=== PATIENT | female | born 1990 | race African-American/Black ===

== ENCOUNTER 2018-04-06 20:12 | Inpatient (IN) ==
[2018-04-06] MEDS ORDERED: Sod Chloride 0.9% Inj 1,000 ML IV.SIG ONE (22:14)
[2018-04-06 23:10] LABS: Baso % (Auto) 0.3 % (0.0-2.0); Eos % (Auto) 0.1 % (0.0-4.0); Hematocrit 21.8 % (35.0-46.0); Lymph # (Auto) 0.9 th/mm3 (1.0-4.8); Lymph % (Auto) 15.8 % (9.0-44.0); Mean Corpuscular Hemoglobin 19.9 pg (27.0-34.0); Mean Corpuscular Volume 68.2 fL (80.0-100.0); Mean Platelet Volume 7.5 fL (7.0-11.0); Mono # (Auto) 0.8 th/mm3 (0.0-0.9); Mono % (Auto) 14.8 % (0.0-8.0); Neut # (Auto) 3.8 th/mm3 (1.8-7.7); Platelet Count 149 th/mm3 (150-450); Red Blood Count 3.19 mil/mm3 (4.00-5.30); Red Cell Distribution Width 20.9 % (11.6-17.2); White Blood Count 5.5 th/mm3 (4.0-11.0)
[2018-04-06 23:13] LABS: Mean Corpuscular HGB Conc 29.2 % (32.0-36.0)
[2018-04-06 23:15] LABS: Hemoglobin 6.4 gm/dL (11.6-15.3)
[2018-04-06 23:31] LABS: Alanine Aminotransferase 23 U/L (10-53); Albumin 3.3 g/dL (3.4-5.0); Anion Gap 11 meq/L (5-15); Aspartate Aminotransferase 21 U/L (15-37); Blood Urea Nitrogen 8 mg/dL (7-18); Calcium 8.3 mg/dL (8.5-10.1); Carbon Dioxide 24.3 meq/L (21.0-32.0); Chloride 103 meq/L (98-107); Glomerular Filtration Rate Greater Than 89 mL/min (>89); Glucose,Random 79 mg/dL (74-106); Lipase 78 U/L (73-393); Potassium 3.3 meq/L (3.5-5.1); Sodium 138 meq/L (136-145)
[2018-04-06 23:34] LABS: Alkaline Phosphatase 74 U/L (45-117); Total Protein 7.5 g/dL (6.4-8.2)
--- NOTE | 2018-04-06 23:38 | ED ---
HPI General Chief complaint: Medical Clearance Stated complaint: Chills Time Seen by Provider: 04/06/18 21:58 Source: patient Mode of arrival: ambulatory Limitations: no limitations History of Present Illness HPI narrative: The patient is a 27 year old female who presents to the [facility] emergency department with a history of this morning developing bilateral flank pain. She reports it is worse on the right compared to the left. She reports that yesterday she began to have urinary frequency and urgency, symptoms similar to when she has had urinary tract infections. She reports that she did start taking Pyridium. She reports having chills. She believes that she has had a fever today. She did not have a thermometer to check it. She reports having nausea without any vomiting or diarrhea. The patient's recent history is complicated by having a blood transfusion approximately a week ago in [place]. She reports that she has been anemic all of her life, however this is the first blood transfusion that she has had. She reports that she had one pack of blood and an iron infusion. She has not started taking the oral iron yet. She reports that she is visiting from [place]. She denies having any lightheaded sensation, chest pain, chest pressure, or shortness of breath, however she does report having chronic daily fatigue. She reports that she has a family history of anemia. She reports that her last menstrual cycle was March 19. She denies having any blood in her stool or black or tarry stools. She reports having abdominal pain. She reports that she is concerned that this is related to her liver. She reports that she has been drinking alcohol daily. On review of systems otherwise, the patient denies having any cough, congestion, neck pain, or neurologic symptoms. Related Data Home Medications Medication Instructions Recorded Confirmed No Known Home Medications 04/06/18 04/06/18 Allergies Allergy/AdvReac Type Severity Reaction Status Date / Time No Known Allergies Allergy Verified 04/06/18 20:19 Review of Systems ROS: all other systems reviewed are negative [facility] Family History Family History Other Family history normal Social History Social History Substance History: Active Abuse Second Hand Smoke Exposure: Yes Smoking Status: Current every day smoker Tobacco Type: Cigarettes How Often Do You Have a Drink Containing Alcohol: 4 or more times a week Recent Travel in [facility] within the Last 8 Weeks: No Recent Out of Country Travel within the Last 8 Weeks: No Substance Abuse Detail Alcohol: Substance Frequency: Daily she has recently been drinking 1 bottle of vodka. Immunization History Tetanus Immunization: <5 Years Exam Const General: cooperative, no acute distress and well developed Nutritional Appearance: well nourished Orientation: alert, awake and oriented x3 [facility] Head: normocephalic and atraumatic Nose: no nasal discharge and no epistaxis Mouth: moist mucous membranes Throat: posterior oropharynx normal and uvula midline Eyes Sclera: normal sclerae Pupils: PERRL Neck Neck: no meningeal signs, trachea midline and no JVD Resp Effort & Inspection: no use of accessory muscles Auscultation: clear to auscultation bilaterally, no crackles, no rhonchi and no wheezes Cardio Rate: regular rate Rhythm: regular rhythm Heart Sounds: no murmurs GI Inspection: non-distended Palpation: soft, no hepatosplenomegaly, no guarding, not rigid and tender in the epigastrum, in the LUQ, in the RUQ and suprapubicly; not in the LLQ, not in the RLQ, Rogers's sign negative and with no rebound tenderness Auscultation: normal bowel sounds Rectal Exam: visual inspection normal, heme negative stool, No mass and No tenderness Back/Spine/Pelvis Back: CVA tenderness (The patient has bilateral CVA tenderness worse on the right compared to the left.) Skin General: dry skin (warm) Neuro General: alert, awake, oriented x3 and other (Grossly nonfocal.) Speech: speech normal Motor: no movement abnormalities noted Extrem General: normal to inspection (No calf tenderness on palpation. 2+ pulses in all 4 extremities.), no clubbing, no cyanosis and no edema Psych Mood: congruent mood Affect: normal affect Judgment: judgment good Course Consultations Consultation #1: The patient's case including history, pertinent physical examination findings, and laboratory studies were discussed with Dr. Mckinney. It was agreed that the patient would be admitted to the hospitalist service. Initial Documented Vital Signs Temperature 100.3 F H 04/06/18 20:19 Pulse Rate 80 04/06/18 20:19 Respiratory Rate 16 04/06/18 20:19 Blood Pressure 113/58 L 04/06/18 20:19 Pulse Oximetry 98 04/06/18 20:19 Last Documented Vital Signs Temperature 100.2 F H 04/07/18 04:58 Pulse Rate 80 04/07/18 07:11 Respiratory Rate 18 04/07/18 07:11 Blood Pressure 103/61 04/07/18 07:11 Pulse Oximetry 96 04/07/18 07:11 Medical Decision Making MDM Narrative Medical decision making narrative: During the course of the patient's emergency department visit, the patient's history, examination, and differential diagnosis were reviewed with the patient. The patient was placed on a cardiac cath lab manager with oximetry and frequent blood pressure monitoring. The patient had IV access obtained and blood work sent for analysis. A diagnostic evaluation was started regarding the patient's symptoms of abdominal pain, nausea, urinary frequency and urgency. The patient's records from [facility] were obtained. The patient's hemoglobin prior to discharge was 7.5. The patient was initially provided normal saline 1 L IV fluid bolus, Zofran 4 mg IV for nausea. Diagnostic studies are remarkable for a white count of 8.9, hemoglobin 6.4, platelets 149, monocytes 14.8. As the patient's hemoglobin has dropped a point since last week, a rectal examination was done and was Hemoccult negative. Chemistry is remarkable for a potassium of 3.3, calcium 8.3, albumin 3.3, lipase within normal limits, urinalysis shows evidence of urinary tract infection with positive nitrate. The patient was given Rocephin 1 g IV. CHEST X-RAY: No infiltrate, pneumothorax or mediastinal widening. Showed no acute abnormality. The patient's case was discussed with her. Given her reported continued fatigue. The patient prefers to have a blood transfusion. The patient will be admitted for blood transfusion, continue treatment of suspected pyelonephritis. The patient's results were discussed with the patient, including the plan of care. I explained that further testing and/ or monitoring is indicated based on the patient's history, examination, and/ or laboratory findings. Therefore, I recommended admission for additional evaluation. The patient expressed understanding and was agreeable with this plan. The patient was admitted to the hospital in stable condition and sent to a bed under the care of the [facility] service. Medical Screen Exam Complete: Yes Emergency Medical Condition: Yes Differential Diagnosis Differential Diagnosis: Symptomatic anemia, versus pyelonephritis, versus cystitis, versus musculoskeletal strain, versus viral syndrome Medical Records Medical records reviewed: Yes I reviewed the patient's medical records. Lab Data Lab results reviewed: Yes I reviewed the patient's lab results. Result diagrams: 04/07/18 07:11 04/07/18 07:11 POC Results POC Urine Results Negative Lab Results 04/06/18 04/06/18 04/06/18 Range/Units 22:57 22:57 22:57 CBC w Diff Auto diff final WBC 5.5 (4.0-11.0) th/mm3 RBC 3.19 L (4.00-5.30) mil/mm3 Hgb 6.4 L* (11.6-15.3) gm/dL Hct 21.8 L (35.0-46.0) % MCV 68.2 L (80.0-100.0) fL MCH 19.9 L (27.0-34.0) pg MCHC 29.2 L (32.0-36.0) % RDW 20.9 H (11.6-17.2) % Plt Count 149 L (150-450) th/mm3 MPV 7.5 (7.0-11.0) fL Prelim Diff (Auto) Payroll Administrator Neut % (Auto) 69.0 (16.0-70.0) % Lymph % (Auto) 15.8 (9.0-44.0) % [place] % (Auto) 14.8 H (0.0-8.0) % Eos % (Auto) 0.1 (0.0-4.0) % Baso % (Auto) 0.3 (0.0-2.0) % Neut # (Auto) 3.8 (1.8-7.7) th/mm3 Lymph # (Auto) 0.9 L (1.0-4.8) th/mm3 [place] # (Auto) 0.8 (0.0-0.9) th/mm3 Eos # (Auto) 0.0 (0.0-0.4) th/mm3 Baso # (Auto) 0.0 (0.0-0.2) th/mm3 WBC Differential . Differential Comment . Sodium 138 (136-145) meq/L Potassium 3.3 L (3.5-5.1) meq/L Chloride 103 (98-107) meq/L Carbon Dioxide 24.3 (21.0-32.0) meq/L Anion Gap 11 (5-15) meq/L BUN 8 (7-18) mg/dL Creatinine 0.82 (0.50-1.00) mg/dL Estimated GFR Greater than 89 (>89) mL/min POC Glucose (68-110) mg/dl Random Glucose 79 (74-106) mg/dL Calcium 8.3 L (8.5-10.1) mg/dL Iron 29 L (50-170) mcg/dL TIBC 483 H (250-450) mcg/dL % Saturation 6.0 L (20-50) % Total Bilirubin 0.5 (0.2-1.0) mg/dL AST 21 (15-37) U/L ALT 23 (10-53) U/L Alkaline Phosphatase 74 (45-117) U/L Total Protein 7.5 (6.4-8.2) g/dL Albumin 3.3 L (3.4-5.0) g/dL Lipase 78 (73-393) U/L Urine Color (Yellw/Straw) Urine Clarity (Clear) Urine pH (5.0-8.5) Ur Specific [place] (1.002-1.035) Urine Protein (Neg-Trace) mg/dL Urine Glucose (UA) (Negative) mg/dL Urine Ketones (Negative) mg/dL Urine Occult Blood (Negative) Urine Nitrate (Negative) Urine Bilirubin (Negative) Urine Urobilinogen (Less than 2) mg/dL Ur Leukocyte Esterase (Negative) Urine RBC (0-3) /hpf Urine WBC (0-5) /hpf Urine WBC Clumps (None) Urine Bacteria (None) /hpf Urine Mucus (Occasional) /lpf Micro UA Comment Ur Microscopic Review Urine Culture Comments Blood Type Blood Type Recheck Antibody Screen MTS Gel Crossmatch 04/07/18 04/07/18 04/07/18 Range/Units 00:57 01:09 01:20 CBC w Diff WBC (4.0-11.0) th/mm3 RBC (4.00-5.30) mil/mm3 Hgb (11.6-15.3) gm/dL Hct (35.0-46.0) % MCV (80.0-100.0) fL MCH (27.0-34.0) pg MCHC (32.0-36.0) % RDW (11.6-17.2) % Plt Count (150-450) th/mm3 MPV (7.0-11.0) fL Prelim Diff (Auto) Neut % (Auto) (16.0-70.0) % Lymph % (Auto) (9.0-44.0) % [place] % (Auto) (0.0-8.0) % Eos % (Auto) (0.0-4.0) % Baso % (Auto) (0.0-2.0) % Neut # (Auto) (1.8-7.7) th/mm3 Lymph # (Auto) (1.0-4.8) th/mm3 [place] # (Auto) (0.0-0.9) th/mm3 Eos # (Auto) (0.0-0.4) th/mm3 Baso # (Auto) (0.0-0.2) th/mm3 WBC Differential Differential Comment Sodium (136-145) meq/L Potassium (3.5-5.1) meq/L Chloride (98-107) meq/L Carbon Dioxide (21.0-32.0) meq/L Anion Gap (5-15) meq/L BUN (7-18) mg/dL Creatinine (0.50-1.00) mg/dL Estimated GFR (>89) mL/min POC Glucose (68-110) mg/dl Random Glucose (74-106) mg/dL Calcium (8.5-10.1) mg/dL Iron (50-170) mcg/dL TIBC (250-450) mcg/dL % Saturation (20-50) % Total Bilirubin (0.2-1.0) mg/dL AST (15-37) U/L ALT (10-53) U/L Alkaline Phosphatase (45-117) U/L Total Protein (6.4-8.2) g/dL Albumin (3.4-5.0) g/dL Lipase (73-393) U/L Urine Color [place] (Yellw/Straw) Urine Clarity Cloudy H (Clear) Urine pH 5.0 (5.0-8.5) Ur Specific [place] 1.010 (1.002-1.035) Urine Protein 100 H (Neg-Trace) mg/dL Urine Glucose (UA) Negative (Negative) mg/dL Urine Ketones Negative (Negative) mg/dL Urine Occult Blood Small H (Negative) Urine Nitrate Positive H (Negative) Urine Bilirubin Negative (Negative) Urine Urobilinogen 2.0 H (Less than 2) mg/dL Ur Leukocyte Esterase Moderate H (Negative) Urine RBC 14 H (0-3) /hpf Urine WBC (0-5) /hpf Urine WBC Clumps Many H (None) Urine Bacteria Occasional H (None) /hpf Urine Mucus Many H (Occasional) /lpf Micro UA Comment Culture indicated Ur Microscopic Review Not Reportable Urine Culture Comments Culture indicated Blood Type O Positive Blood Type Recheck Required Antibody Screen Negative MTS Gel Crossmatch See Detail 04/07/18 04/07/18 04/07/18 Range/Units 03:59 07:11 07:11 CBC w Diff WBC 8.9 D (4.0-11.0) th/mm3 RBC 5.05 (4.00-5.30) mil/mm3 Hgb 10.6 L D (11.6-15.3) gm/dL Hct 35.2 (35.0-46.0) % MCV 69.8 L (80.0-100.0) fL MCH 21.0 L (27.0-34.0) pg MCHC 30.1 L (32.0-36.0) % RDW 23.8 H D (11.6-17.2) % Plt Count 218 D (150-450) th/mm3 MPV 7.8 (7.0-11.0) fL Prelim Diff (Auto) Neut % (Auto) 71.2 H (16.0-70.0) % Lymph % (Auto) 15.5 (9.0-44.0) % [place] % (Auto) 12.7 H (0.0-8.0) % Eos % (Auto) 0.1 (0.0-4.0) % Baso % (Auto) 0.5 (0.0-2.0) % Neut # (Auto) 6.3 (1.8-7.7) th/mm3 Lymph # (Auto) 1.4 (1.0-4.8) th/mm3 [place] # (Auto) 1.1 H (0.0-0.9) th/mm3 Eos # (Auto) 0.0 (0.0-0.4) th/mm3 Baso # (Auto) 0.0 (0.0-0.2) th/mm3 WBC Differential . Differential Comment Auto diff final Sodium 139 (136-145) meq/L Potassium 3.7 (3.5-5.1) meq/L Chloride 105 (98-107) meq/L Carbon Dioxide 23.8 (21.0-32.0) meq/L Anion Gap 10 (5-15) meq/L BUN 5 L (7-18) mg/dL Creatinine 0.72 (0.50-1.00) mg/dL Estimated GFR Greater than 89 (>89) mL/min POC Glucose 121 H (68-110) mg/dl Random Glucose 86 (74-106) mg/dL Calcium 7.9 L (8.5-10.1) mg/dL Iron (50-170) mcg/dL TIBC (250-450) mcg/dL % Saturation (20-50) % Total Bilirubin 0.5 (0.2-1.0) mg/dL AST 23 (15-37) U/L ALT 19 (10-53) U/L Alkaline Phosphatase 76 (45-117) U/L Total Protein 7.1 (6.4-8.2) g/dL Albumin 2.9 L (3.4-5.0) g/dL Lipase (73-393) U/L Urine Color (Yellw/Straw) Urine Clarity (Clear) Urine pH (5.0-8.5) Ur Specific [place] (1.002-1.035) Urine Protein (Neg-Trace) mg/dL Urine Glucose (UA) (Negative) mg/dL Urine Ketones (Negative) mg/dL Urine Occult Blood (Negative) Urine Nitrate (Negative) Urine Bilirubin (Negative) Urine Urobilinogen (Less than 2) mg/dL Ur Leukocyte Esterase (Negative) Urine RBC (0-3) /hpf Urine WBC (0-5) /hpf Urine WBC Clumps (None) Urine Bacteria (None) /hpf Urine Mucus (Occasional) /lpf Micro UA Comment Ur Microscopic Review Urine Culture Comments Blood Type Blood Type Recheck Antibody Screen MTS Gel Crossmatch Imaging Data Radiologist's impression: Chest X-Ray 04/07/18 02:32 CONCLUSION: No acute cardiopulmonary abnormality is identified. Discharge Plan Discharge Disposition Patient Disposition: 30 Still Patient Discharge Details Diagnosis: Symptomatic anemia, Pyelonephritis Physicians Team ED Provider: Janis Sosa Primary Care Provider: UNKNOWN, Attending Provider: Jem Pickering Other Providers: Mike Eaton Discharge Interventions Interventions: Vital Signs Last Done: 04/07/18 04:58 Status ED Status: Admitted Patient
[2018-04-07 01:14] LABS: Bacteria,Urine Occasional /hpf; Bilirubin,Urine Negative (Negative); Clarity,Urine Cloudy (Clear); Color,Urine Amber (Yellw/Straw); Glucose,Urine (UA) Negative (Negative); Leukocyte Esterase,Urine Moderate (Negative); Mucus,Urine Many /lpf (Occasional); Nitrite,Urine Positive (Negative)
[2018-04-07] MEDS ORDERED: Sodium Chlor 0.9% Inj 250 ML IV.SIG SCH (02:00)
[2018-04-07] MEDS ORDERED: LORazepam 1 MG Tablet PO PRN (02:18)
[2018-04-07] MEDS ORDERED: Haloperidol Inj 5 MG/ML Ampul IV.PUSH PRN ×2 (02:18→02:29)
--- NOTE | 2018-04-07 02:29 | P.HP ---
History of Present Illness Service: [facility] Primary Care Physician: UNKNOWN History of Present Illness: 27-year-old female with a past medical history for anemia requiring transfusion x1 1 week ago presents to the emergency department for the evaluation of "an aching liver", fever and urinary symptoms times 2 days. The patient reports she was seen at [facility] last week where she was transfused 1 unit and given an iron infusion. She was prescribed iron supplements however refuses to take these as she states her iron has been low her whole life and nothing will bring it up. The patient is anemic today with a hemoglobin of 6.4. She also has a urinary tract infection. She denies chest pain or shortness of breath. No cough. Positive fevers times 2 days. Complains of pelvic pain. Denies nausea/ vomiting/diarrhea. Patient reports drinking 1-2 bottles of vodka daily. She reports she has never had withdrawal seizures. Inpatient Certification: I certify that the inpatient services were ordered in accordance with Medicare regulations governing the order. This includes certification that hospital inpatient services are reasonable and necessary and in the case of services not specified as inpatient-only under 42 CFR 419.22(n), that they are appropriately provided as inpatient services in accordance to with the 2-midnight benchmark under 43 CFR 412.3(e) Estimated Total Length of Stay (Days): 2 Plans for Post Hospital Care: Not yet determined Review of Systems All other systems reviewed negative except [facility] - History History Provided By: Patient - Medical History Medical History: Medical History (Last Reviewed 04/07/18 @ 02:25 by Padma Mckinney MD) Alcohol abuse Anemia delivery delivered - Family History Family History: Family History (Last Updated 04/07/18 @ 02:25 by Padma Mckinney MD) Other Family history normal - Tobacco History Second Hand Smoke Exposure: Yes Tobacco Use In Past 30 Days: Yes Smoking Status: Current every day smoker Tobacco Type: Cigarettes - Alcohol History How Often Do You Have a Drink Containing Alcohol: 4 or more times a week - Substance Use History Substance History: Active Abuse - Substance Use Type Alcohol Frequency: Daily she has recently been drinking 1 bottle of vodka. - Travel History Recent Travel in the [place] Within the Last 8 Weeks: No Recent Travel Out of the Country Within the Last 8 Weeks: No - Immunization History Tetanus Immunization: <5 Years Medications and Allergies Active Medications: Active Medications Sodium Chloride (Ns Inj) 250 mls @ 15 mls/hr IV.SIG ONCE ROSA Stop: 04/07/18 18:39 Allergies Allergy/AdvReac Type Severity Reaction Status Date / Time No Known Allergies Allergy Verified 04/06/18 20:19 Home Medications Medication Instructions Recorded Confirmed Type No Known Home Medications 04/06/18 04/06/18 History Exam Vital signs: Vital Signs 04/06/18 20:19 04/06/18 20:22 04/07/18 00:22 Temperature 100.3 F H 99.0 F Pulse Rate 80 72 88 Respiratory Rate 16 18 20 Blood Pressure 113/58 L 122/70 Pulse Oximetry 98 97 98 04/07/18 01:49 Temperature 102 F H Pulse Rate Respiratory Rate Blood Pressure Pulse Oximetry Intake & Output 04/06/18 04/06/18 04/07/18 06:59 18:59 06:59 Intake Total 1250 / 1250 Balance 1250 / 1250 Weight 62.142 kg Intake: IV 1100 / 1100 NS Inj 1,000 ML @ Wide Open IV. 1000 / 1000 SIG BOLUS ONE Rx#:[id number] Rocephin Inj 1,000 MG In NS Inj 100 / 100 100 ML @ 200 mls/hr IV.SIG ONCE ONE Rx#:[id number] Oral 150 / 150 Other: # Voids 1 Narrative: Gen.: No acute distress Head: Normocephalic. Atraumatic. EENT: Pupils equal round and reactive to light. Nose without drainage. Airway intact. Throat without injection. Cardiovascular: Regular rate and rhythm. No murmurs, rubs or gallops. Respiratory: Lungs clear to auscultation bilaterally. No wheezes or rhonchi. Abdomen: Soft, nontender, nondistended. No peritoneal signs. Musculoskeletal: No gross deformities. No edema. Skin: No obvious rashes or erythema. Neuro: Sensory and motor grossly intact. Cranial nerves II through XII grossly intact. Results - Labs CBC & Chem 7: 04/06/18 22:57 04/06/18 22:57 Labs: Laboratory Results - last 24 hr 04/06/18 04/06/18 04/07/18 22:57 22:57 00:57 CBC w Diff Auto diff final WBC 5.5 RBC 3.19 L Hgb 6.4 L* Hct 21.8 L MCV 68.2 L MCH 19.9 L MCHC 29.2 L RDW 20.9 H Plt Count 149 L MPV 7.5 Prelim Diff (Auto) Hall Manager Neut % (Auto) 69.0 Lymph % (Auto) 15.8 [place] % (Auto) 14.8 H Eos % (Auto) 0.1 Baso % (Auto) 0.3 Neut # (Auto) 3.8 Lymph # (Auto) 0.9 L [place] # (Auto) 0.8 Eos # (Auto) 0.0 Baso # (Auto) 0.0 WBC Differential . Differential Comment . Sodium 138 Potassium 3.3 L Chloride 103 Carbon Dioxide 24.3 Anion Gap 11 BUN 8 Creatinine 0.82 Estimated GFR Greater than 89 Random Glucose 79 Calcium 8.3 L Total Bilirubin 0.5 AST 21 ALT 23 Alkaline Phosphatase 74 Total Protein 7.5 Albumin 3.3 L Lipase 78 Urine Color [place] Urine Clarity Cloudy H Urine pH 5.0 Ur Specific [place] 1.010 Urine Protein 100 H Urine Glucose (UA) Negative Urine Ketones Negative Urine Occult Blood Small H Urine Nitrate Positive H Urine Bilirubin Negative Urine Urobilinogen 2.0 H Ur Leukocyte Esterase Moderate H Urine RBC 14 H Urine WBC Urine WBC Clumps Many H Urine Bacteria Occasional H Urine Mucus Many H Micro UA Comment Culture indicated Ur Microscopic Review Not Reportable Urine Culture Comments Culture indicated Blood Type Blood Type Recheck MTS Gel Crossmatch 04/07/18 04/07/18 01:09 01:20 CBC w Diff WBC RBC Hgb Hct MCV MCH MCHC RDW Plt Count MPV Prelim Diff (Auto) Neut % (Auto) Lymph % (Auto) [place] % (Auto) Eos % (Auto) Baso % (Auto) Neut # (Auto) Lymph # (Auto) [place] # (Auto) Eos # (Auto) Baso # (Auto) WBC Differential Differential Comment Sodium Potassium Chloride Carbon Dioxide Anion Gap BUN Creatinine Estimated GFR Random Glucose Calcium Total Bilirubin AST ALT Alkaline Phosphatase Total Protein Albumin Lipase Urine Color Urine Clarity Urine pH Ur Specific [place] Urine Protein Urine Glucose (UA) Urine Ketones Urine Occult Blood Urine Nitrate Urine Bilirubin Urine Urobilinogen Ur Leukocyte Esterase Urine RBC Urine WBC Urine WBC Clumps Urine Bacteria Urine Mucus Micro UA Comment Ur Microscopic Review Urine Culture Comments Blood Type O Positive Blood Type Recheck Required MTS Gel Crossmatch See Detail Caprini VTE Risk Assessment Caprini VTE Risk Assessment: No/Low Risk (score <= 1) Caprini Risk Assessment Model: Point Value = 1 Point Value = 2 Point Value = 3 Point Value = 5 Age 41-60 Minor surgery BMI > 25 kg/m2 Swollen legs Varicose veins or History of unexplained or recurrent spontaneous Oral contraceptives or hormone replacement Sepsis (< 1 month) Serious lung disease, including pneumonia (< 1 month) Abnormal pulmonary function Acute myocardial infarction Congestive heart failure (< 1 month) History of inflammatory bowel disease Medical patient at bed rest Age 61-74 Arthroscopic surgery Major open surgery (> 45 min) Laparoscopic surgery (> 45 min) Malignancy Confined to bed (> 72 hours) Immobilizing plaster cast Central venous access Age >= 75 History of VTE Family history of VTE Factor V Leiden Prothrombin [id number] Lupus anticoagulant Anticardiolipin antibodies Elevated serum homocysteine Heparin-induced thrombocytopenia Other congenital or acquired thrombophilia Stroke (< 1 month) Elective arthroplasty Hip, pelvis, or leg fracture Acute spinal cord injury (< 1 month) Prophylaxis Regimen: Total Risk Factor Score Risk Level Prophylaxis Regimen 0-1 Low Early ambulation 2 Moderate Order ONE of the following: *Sequential Compression Device (SCD) *Heparin 5000 units SQ BID 3-4 Higher Order ONE of the following medications: *Heparin 5000 units SQ TID *Enoxaparin/Lovenox 40 mg SQ daily (WT < 150 kg, CrCl > 30 mL/min) *Enoxaparin/Lovenox 30 mg SQ daily (WT < 150 kg, CrCl > 10-29 mL/min) *Enoxaparin/Lovenox 30 mg SQ BID (WT < 150 kg, CrCl > 30 mL/min) AND/OR *Sequential Compression Device (SCD) 5 or more Highest Order ONE of the following medications: *Heparin 5000 units SQ TID (Preferred with Epidurals) *Enoxaparin/Lovenox 40 mg SQ daily (WT < 150 kg, CrCl > 30 mL/min) *Enoxaparin/Lovenox 30 mg SQ daily (WT < 150 kg, CrCl > 10-29 mL/min) *Enoxaparin/Lovenox 30 mg SQ BID (WT < 150 kg, CrCl > 30 mL/min) AND *Sequential Compression Device (SCD) Assessment and Plan - Plan Assessment/plan: 1. Anemia Transfused 2 units packed red blood cells Iron profile pending Hematology consulted, appreciate recommendations 2. Urinary tract infection UA consistent with UTI Urine culture pending Rocephin 3. Alcohol abuse [facility] protocol Thiamine/folate/multivitamin Monitor for signs of withdrawal Cessation counseling provided FEN Regular diet Electrolytes: Status post p.o. repletion of potassium, monitor BMP
[2018-04-07] MEDS: Acetaminophen 325 MG Tablet PO PRN ×2 (02:37→20:49)
--- NOTE | 2018-04-07 03:13 | XR ---
EXAM DATE: 04/07/2018 2:32 AM EDT AGE/SEX: 27 years / Female INDICATIONS: Fever. CLINICAL DATA: This is the patient's initial encounter. Patient reports that signs and symptoms have been present for 2 days and indicates a pain score of 0/10. MEDICAL/SURGICAL HISTORY: None. None. COMPARISON: No prior exams available for comparison. FINDINGS: Portable AP view of the chest demonstrates a normal-sized cardiac silhouette. No effusion, consolidat ion, or pneumothorax is identified. The bones and soft tissues demonstrate no acute finding. EKG line s overlie the patient. There is a left cervical rib. CONCLUSION: No acute cardiopulmonary abnormality is identified. Electronically signed by: Damaso Velazco MD 04/07/2018 3:11 AM EDT
[2018-04-07 07:58] LABS: Baso % (Auto) 0.5 % (0.0-2.0); Eos % (Auto) 0.1 % (0.0-4.0); Hematocrit 35.2 % (35.0-46.0); Hemoglobin 10.6 gm/dL (11.6-15.3); Lymph # (Auto) 1.4 th/mm3 (1.0-4.8); Lymph % (Auto) 15.5 % (9.0-44.0); Mean Corpuscular Volume 69.8 fL (80.0-100.0); Mean Platelet Volume 7.8 fL (7.0-11.0); Mono # (Auto) 1.1 th/mm3 (0.0-0.9); Mono % (Auto) 12.7 % (0.0-8.0); Neut # (Auto) 6.3 th/mm3 (1.8-7.7); Neut % (Auto) 71.2 % (16.0-70.0); Platelet Count 218 th/mm3 (150-450); Red Blood Count 5.05 mil/mm3 (4.00-5.30); Red Cell Distribution Width 23.8 % (11.6-17.2); White Blood Count 8.9 th/mm3 (4.0-11.0)
[2018-04-07 08:07] LABS: Mean Corpuscular HGB Conc 30.1 % (32.0-36.0)
[2018-04-07 08:10] LABS: Alanine Aminotransferase 19 U/L (10-53); Albumin 2.9 g/dL (3.4-5.0); Anion Gap 10 meq/L (5-15); Aspartate Aminotransferase 23 U/L (15-37); Blood Urea Nitrogen 5 mg/dL (7-18); Calcium 7.9 mg/dL (8.5-10.1); Carbon Dioxide 23.8 meq/L (21.0-32.0); Chloride 105 meq/L (98-107); Glomerular Filtration Rate Greater Than 89 mL/min (>89); Glucose,Random 86 mg/dL (74-106); Potassium 3.7 meq/L (3.5-5.1); Sodium 139 meq/L (136-145)
[2018-04-07 08:12] LABS: Alkaline Phosphatase 76 U/L (45-117); Total Protein 7.1 g/dL (6.4-8.2)
--- NOTE | 2018-04-07 08:33 | P.PN ---
Subjective Interval history: This is a pleasant 27 y/o Female who was seen already in ER one week ago due to Anemia and received one unit of PRBCs at [facility]. she came again to ER with developing bilateral flank pain, right worse than left, increased urinary frequency, she suspected UTI, she took Pyridium, had chills, and subjective fever, Nausea, denied vomit or diarrhea, is been treated during her life with blood transfusions and Iron, She had already workup started in [place], reported chronic fatigue, drinks alcohol daily, during this hospitalization received blood transfusion of two units of PRBCs. her hemoglobin 6.4, UTI found in ER, reported drinking 1 to 2 bottles of Vodka daily. If the patient is able to continue her care at [facility] she will be followed by store operations specialist and continue her antibiotics for her UTI and CIWA protocol at [facility]. facility. Physical Exam Vital signs: Vital Signs 04/06/18 20:19 04/06/18 20:22 04/07/18 00:22 Temperature 100.3 F H 99.0 F Pulse Rate 80 72 88 Respiratory Rate 16 18 20 Blood Pressure 113/58 L 122/70 Pulse Oximetry 98 97 98 04/07/18 01:49 04/07/18 03:38 04/07/18 03:52 Temperature 102 F H 101.2 F H 101.2 F H Pulse Rate 84 88 Respiratory Rate 18 18 Blood Pressure 102/56 L 98/55 L Pulse Oximetry 96 99 04/07/18 03:56 04/07/18 04:06 04/07/18 04:13 Temperature 102.0 F H 100.5 F H 100.5 F H Pulse Rate 83 79 80 Respiratory Rate 18 18 18 Blood Pressure 103/57 L 102/59 L 102/59 L Pulse Oximetry 100 98 04/07/18 04:26 04/07/18 04:56 04/07/18 04:58 Temperature 99.6 F 100.3 F H 100.2 F H Pulse Rate 86 79 77 Respiratory Rate 18 18 16 Blood Pressure 107/62 109/61 109/59 L Pulse Oximetry 99 99 99 04/07/18 05:01 04/07/18 07:11 Temperature Pulse Rate 73 80 Respiratory Rate 16 18 Blood Pressure 109/65 103/61 Pulse Oximetry 98 96 Intake & Output 04/06/18 04/07/18 04/07/18 18:59 06:59 18:59 Intake Total 1650 / 1650 Balance 1650 / 1650 Weight 62.142 kg Intake: IV 1100 / 1100 NS Inj 1,000 ML @ Wide Open IV. 1000 / 1000 SIG BOLUS ONE Rx#:[id number] Rocephin Inj 1,000 MG In NS Inj 100 / 100 100 ML @ 200 mls/hr IV.SIG ONCE ONE Rx#:[id number] Oral 150 / 150 Intake (Blood Product) Amt 400 / 400 Rbc As-3 Leukoreduced Unit 0 / 0 [id number] Rbc As-3 Leukoreduced Unit 400 / 400 [id number] Other: # Voids 1 Narrative: GENERAL: This is a well-nourished, well-developed patient, in no apparent distress. CARDIOVASCULAR: Regular rate and rhythm without murmurs, gallops, or rubs. RESPIRATORY: Clear to auscultation. Breath sounds equal bilaterally. No wheezes , rales, or rhonchi. GASTROINTESTINAL: Abdomen soft, non-tender, nondistended. Normal active bowel sounds MUSCULOSKELETAL: Extremities without clubbing, cyanosis, or edema. NEURO: Alert & Oriented x4 to person, place, time, situation. Moves all ext x4 Results - Labs CBC & Chem 7: 04/07/18 07:11 04/07/18 07:11 Laboratory Results - last 24 hr 04/06/18 04/06/18 04/06/18 22:57 22:57 22:57 CBC w Diff Auto diff final WBC 5.5 RBC 3.19 L Hgb 6.4 L* Hct 21.8 L MCV 68.2 L MCH 19.9 L MCHC 29.2 L RDW 20.9 H Plt Count 149 L MPV 7.5 Prelim Diff (Auto) Feeder Operator Automatic Neut % (Auto) 69.0 Lymph % (Auto) 15.8 [place] % (Auto) 14.8 H Eos % (Auto) 0.1 Baso % (Auto) 0.3 Neut # (Auto) 3.8 Lymph # (Auto) 0.9 L [place] # (Auto) 0.8 Eos # (Auto) 0.0 Baso # (Auto) 0.0 WBC Differential . Differential Comment . Sodium 138 Potassium 3.3 L Chloride 103 Carbon Dioxide 24.3 Anion Gap 11 BUN 8 Creatinine 0.82 Estimated GFR Greater than 89 POC Glucose Random Glucose 79 Calcium 8.3 L Iron 29 L TIBC 483 H % Saturation 6.0 L Total Bilirubin 0.5 AST 21 ALT 23 Alkaline Phosphatase 74 Total Protein 7.5 Albumin 3.3 L Lipase 78 Urine Color Urine Clarity Urine pH Ur Specific [place] Urine Protein Urine Glucose (UA) Urine Ketones Urine Occult Blood Urine Nitrate Urine Bilirubin Urine Urobilinogen Ur Leukocyte Esterase Urine RBC Urine WBC Urine WBC Clumps Urine Bacteria Urine Mucus Micro UA Comment Ur Microscopic Review Urine Culture Comments Blood Type Blood Type Recheck Antibody Screen MTS Gel Crossmatch 04/07/18 04/07/18 04/07/18 00:57 01:09 01:20 CBC w Diff WBC RBC Hgb Hct MCV MCH MCHC RDW Plt Count MPV Prelim Diff (Auto) Neut % (Auto) Lymph % (Auto) [place] % (Auto) Eos % (Auto) Baso % (Auto) Neut # (Auto) Lymph # (Auto) [place] # (Auto) Eos # (Auto) Baso # (Auto) WBC Differential Differential Comment Sodium Potassium Chloride Carbon Dioxide Anion Gap BUN Creatinine Estimated GFR POC Glucose Random Glucose Calcium Iron TIBC % Saturation Total Bilirubin AST ALT Alkaline Phosphatase Total Protein Albumin Lipase Urine Color Barbara Urine Clarity Cloudy H Urine pH 5.0 Ur Specific [place] 1.010 Urine Protein 100 H Urine Glucose (UA) Negative Urine Ketones Negative Urine Occult Blood Small H Urine Nitrate Positive H Urine Bilirubin Negative Urine Urobilinogen 2.0 H Ur Leukocyte Esterase Moderate H Urine RBC 14 H Urine WBC Urine WBC Clumps Many H Urine Bacteria Occasional H Urine Mucus Many H Micro UA Comment Culture indicated Ur Microscopic Review Not Reportable Urine Culture Comments Culture indicated Blood Type O Positive Blood Type Recheck Required Antibody Screen Negative MTS Gel Crossmatch See Detail 04/07/18 04/07/18 04/07/18 03:59 07:11 07:11 CBC w Diff WBC 8.9 D RBC 5.05 Hgb 10.6 L D Hct 35.2 MCV 69.8 L MCH 21.0 L MCHC 30.1 L RDW 23.8 H D Plt Count 218 D MPV 7.8 Prelim Diff (Auto) Neut % (Auto) 71.2 H Lymph % (Auto) 15.5 [place] % (Auto) 12.7 H Eos % (Auto) 0.1 Baso % (Auto) 0.5 Neut # (Auto) 6.3 Lymph # (Auto) 1.4 [place] # (Auto) 1.1 H Eos # (Auto) 0.0 Baso # (Auto) 0.0 WBC Differential . Differential Comment Auto diff final Sodium 139 Potassium 3.7 Chloride 105 Carbon Dioxide 23.8 Anion Gap 10 BUN 5 L Creatinine 0.72 Estimated GFR Greater than 89 POC Glucose 121 H Random Glucose 86 Calcium 7.9 L Iron TIBC % Saturation Total Bilirubin 0.5 AST 23 ALT 19 Alkaline Phosphatase 76 Total Protein 7.1 Albumin 2.9 L Lipase Urine Color Urine Clarity Urine pH Ur Specific [place] Urine Protein Urine Glucose (UA) Urine Ketones Urine Occult Blood Urine Nitrate Urine Bilirubin Urine Urobilinogen Ur Leukocyte Esterase Urine RBC Urine WBC Urine WBC Clumps Urine Bacteria Urine Mucus Micro UA Comment Ur Microscopic Review Urine Culture Comments Blood Type Blood Type Recheck Antibody Screen MTS Gel Crossmatch - Imaging Impressions Chest X-Ray 04/07/18 02:32 CONCLUSION: No acute cardiopulmonary abnormality is identified. Assessment and Plan - Plan 1. Anemia hemoglobin today 10.6 Transfused 2 units packed red blood cells Iron profile pending Hematology consulted, appreciate recommendations 2. Urinary tract infection UA consistent with UTI Urine culture pending Rocephin 3. Alcohol abuse [facility] protocol Thiamine/folate/multivitamin Monitor for signs of withdrawal Cessation counseling provided FEN Regular diet Electrolytes: Status post p.o. repletion of potassium, monitor BMP Code Status: Full code. Discussed Condition With: Patient and Her in the room. Discharge Planning: Discussed with Jayne Soteloulding the patient will continue her care at [facility] under the care of Doctor Porter.
--- NOTE | 2018-04-07 19:03 | MB ---
cc: Mireya Romo MD,Padma Negron MD DATE: 04/07/2018 REFERRING PHYSICIAN: Padma Mckinney MD CHIEF COMPLAINT: Dr. Mckinney requests a consultation for Ms. Kaur regarding iron deficiency anemia. HISTORY OF PRESENT ILLNESS: Ms. Kaur is a 27-year-old woman with no significant past history except for menorrhagia. She reports that her cycles have always been heavy since menarche. Her cycles last 7 days and are very heavy for 5 of them. Her next cycle is due in about 10 days. She has developed symptomatic anemia requiring blood transfusion. She is originally from [place]. She was transfused in [place]. She was at the [place]. She became lightheaded and had feelings of hot flashes. She was fatigued. She has pain in the left back. She is sexually active. She denies any dysuria, but developed a lot of nausea and significant symptoms. She came into the hospital at [place] and was transferred to [place]. She resides in [facility]. She was at the [place] here. Her children are under the custody of her mother in [place]. She plans to visit them after getting out of the hospital here. She has a child who is less than 2, a 3-year-old, a 5-year-old and an 11-year-old. On admission, she was found to be febrile with a temperature of 100.3. T-max was 102. Blood cultures and urine culture were obtained. Urinalysis shows a small amount of blood, positive nitrites, many white blood cells and leukocyte esterase. She likely has a urinary tract infection, possible pyelo. She feels unwell with a hot and cold sensation. She has nausea and has a decrease in appetite. On further questioning, she feels fatigued all the time. She has always been anemic. There is no family history of anemia. No family history of bleeding disorders. None of her children are bleeders. She does not know if her mom has menorrhagia. We discussed the likelihood of her anemia is probably coming from the menorrhagia. On admission, her hemoglobin was 6.4. She was transfused 2 units of packed red cells and her hemoglobin came up to 10.6. She still feels achy. She denies any other bleeding. Iron studies are consistent with iron deficiency with a low ferritin of 36, iron saturation is 6%. TIBC is elevated at 483. Renal function is normal. REVIEW OF SYSTEMS: The rest of her review of systems is negative. PAST MEDICAL HISTORY: Menorrhagia, iron deficiency anemia, pyelonephritis, urinary tract infection. PAST SURGICAL HISTORY: delivery. SOCIAL HISTORY: She drinks alcohol. She smokes cigarettes. She has a history of active substance abuse. FAMILY HISTORY: No significant family history of cancer. Both parents are alive and well. ALLERGIES: NO KNOWN DRUG ALLERGIES. CURRENT MEDICATIONS: 1. Tylenol. 2. Ceftriaxone. 3. Romazicon. 4. Folic acid. 5. Haldol p.r.n. 6. Lorazepam p.r.n. 7. Theragran M. 8. Zofran p.r.n. 9. Thiamine. PHYSICAL EXAMINATION: VITAL SIGNS: Temperature 96.4, heart rate 90, respiratory rate 16, blood pressure 117/76. GENERAL: Ms. Kaur is a well-developed, well-nourished, young woman, who looks her stated age. She has fake lashes in place. She is awake, alert, cooperative. She is mainly complaining of being achy. SKIN: Warm without any rashes. HEENT: Pupils are round, reactive to light and accommodation. Oropharynx is dry. NECK: Supple. LUNGS: Clear. CARDIOVASCULAR: Reveals a normal rate and rhythm. ABDOMEN: Benign. EXTREMITIES: Lower extremities with no edema. NEUROLOGIC: Nonfocal. BACK: She has tenderness in the left costophrenic angle. LABORATORY DATA: As described above. Hemoglobin 10.6, MCV 69.8. ASSESSMENT AND PLAN: Ms. Kaur is a 27-year-old woman originally from [place] visiting the [facility]. She presents with fevers, chills, hot flashes and found to have pyelonephritis. She is started on ceftriaxone. She still has not defervesced. She still feels unwell and is nauseous with the left-sided back pain. We discussed hematology involvement for iron deficiency. I suspect her iron deficiency is related to her delivery of 4 children. The most recent one was less than 2 years ago. She delivered via . She also has menorrhagia since menarche with heavy menses. I suspect her iron stores are significantly depleted. She had received a source of iron several weeks ago with a transfusion in [place]. We discussed that her hemoglobin is stable at 10.6; however, she will need to replace her iron stores in order to enhance hematopoiesis. I will check a CBC with reticulocyte count and LDH tomorrow. She seems to be responding. We will try oral iron supplementation. She is acutely febrile and would avoid all parenteral iron therapy at present. Furthermore, she is advised to follow up with a physician in [place] where she lives. She would benefit from starting and trying oral iron supplementation to help in repleting her iron stores, which would take several months. This was discussed at length and explained to the patient. Her temperature seems to be trending down. She seems to be responding to the ceftriaxone, although not quick enough in her case. She is encouraged to use Zofran on a p.r.n. basis for her nausea. Iron studies are consistent with the iron deficiency. Her questions were answered to her satisfaction. No additional transfusion is needed at present. We will follow with you. We will decide if she would benefit from parenteral iron therapy when she has defervesced. MD WES [place]/mimi , 05:41 PM , 05:56 PM
[2018-04-07] MEDS: Multivitamin/Minerals Therapeutic Tablet PO SCH (19:09)
[2018-04-07] MEDS: Folic Acid 1 MG Tablet PO SCH (19:09)
--- NOTE | 2018-04-07 19:56 | MB ---
cc: Chun Eaton MD DATE: 04/07/2018 REASON FOR CONSULTATION: Consult requested by hospitalist for evaluation of iron deficiency anemia. HISTORY OF PRESENT ILLNESS: Dereck is a 27-year-old female who lives in [place]. She is visiting this area. She has a history of iron deficiency anemia throughout her life according to her. She has seen a chemistry technologist and other physicians in the [place] area and she could not remember the name of those. The patient went to emergency room [facility] about a week ago as she was not feeling well. She stated that she was told to have severe anemia and she was given blood transfusion and iron infusion. She was also advised to take oral iron. However, she is intolerant to oral iron. The patient developed fever and bilateral flank pain a few days ago. She is visiting this area to see her friend. She decided to come to [facility] emergency room. In the ER, she was found to have a urinary tract infection. A urinalysis showed urine nitrite positive, and has many WBC clumps. Culture is pending. The patient was started on Rocephin. CBC yesterday when she came into the emergency room showed a white count of 5.5, a hemoglobin 6.4, platelet of 149. MCV 68.2. She had received 2 units of blood transfusion. This morning, her hemoglobin has improved to 10.6. Iron studies done last night showed serum iron 29, TIBC high at 483. Iron saturation is 6. No ferritin was ordered. I have been asked to see the patient for iron deficiency. The patient denies any blood in the stool. She stated that she previously had a GI workup, which was negative. She had 4 C-sections. The last one was about a year ago. She denies having heavy vaginal bleeding or menorrhagia. She has been drinking alcohol. Her nutritional status appears to be poor. The rest of the review of systems is negative. PAST MEDICAL HISTORY: Iron deficiency anemia. PAST SURGICAL HISTORY: x4. ALLERGIES: None. MEDICATIONS: Medications prior to prior to coming in the hospital are none. FAMILY HISTORY: Noncontributory. SOCIAL HISTORY: The patient drinks alcohol heavily. She does not smoke cigarettes. PHYSICAL EXAMINATION: GENERAL: Reveals a well-developed, female in no apparent distress. VITAL SIGNS: Temperature 100.2, heart rate is 77, respiratory rate 16, blood pressure 109/59. HEENT: PERRLA. EOMI, anicteric. No oral lesions noted. NECK: No lymphadenopathy noted. LUNGS: Clear. No wheezing, rhonchi or rales. CARDIOVASCULAR: Regular rate and rhythm. ABDOMEN: Soft and nontender. EXTREMITIES: No pedal edema. NEUROLOGIC: Awake, alert, oriented x3. SKIN: No significant lesions are noted. ASSESSMENT: 1. Microcytic hypochromic anemia due to iron deficiency. The source of iron loss is unknown, but I suspect that she may have heavy menses or could be poor nutrition. She denies any blood in the stool. She had a workup for iron deficiency in [facility]. Those records are not available at the present time. PLAN: I have reviewed her available records. Her iron studies show iron deficiency. I will add serum ferritin for further evaluation. The patient had received blood and iron infusion a week ago at [facility] . Yesterday when she came in, her hemoglobin was 6.4. She had received 2 units of blood transfusion. Her hemoglobin this morning improved to 10.6. She is intolerant to oral iron. I will give her Venofer iron infusion. Since the patient is visiting this area and she has a physician in [facility] where she had a workup for her anemia, I have advised her that when she is discharged, she can go back to her physician in [place] for followup of the anemia. She could not remember the name of her physicians. Stool should be checked for Hemoccult to make sure that she is not having any GI bleeding. She denies any menorrhagia, but she had 4 C-sections and the last one was a year ago. Without looking at her previous workup for the anemia, it is difficult to give any further firm recommendations. She needs to go back to her physicians in [place] for further followup. Thank you for asking my opinion. MD GINA Villanueva/jaquan , 07:10 PM , 07:24 PM OC
[2018-04-07] MEDS: Ferrous Sulfate 325 MG Tablet PO SCH (20:49)
[2018-04-07] MEDS ORDERED: Iron Sucrose Inj 200 MG in Sodium Chlor 0.9% Inj 100 ML IV.SIG ONE (21:00)
[2018-04-08] MEDS: Acetaminophen 325 MG Tablet PO PRN (05:27)
[2018-04-08 06:39] LABS: Baso % (Auto) 0.5 % (0.0-2.0); Eos % (Auto) 0.1 % (0.0-4.0); Hematocrit 36.8 % (35.0-46.0); Hemoglobin 11.2 gm/dL (11.6-15.3); Lymph % (Auto) 12.1 % (9.0-44.0); Mean Corpuscular Hemoglobin 21.8 pg (27.0-34.0); Mean Corpuscular Volume 71.9 fL (80.0-100.0); Mean Platelet Volume 8.9 fL (7.0-11.0); Mono % (Auto) 12.3 % (0.0-8.0); Neut # (Auto) 6.1 th/mm3 (1.8-7.7); Platelet Count 201 th/mm3 (150-450); Red Blood Count 5.12 mil/mm3 (4.00-5.30); Red Cell Distribution Width 23.2 % (11.6-17.2); White Blood Count 8.1 th/mm3 (4.0-11.0)
[2018-04-08 06:48] LABS: Mean Corpuscular HGB Conc 30.4 % (32.0-36.0)
[2018-04-08 06:59] LABS: Chloride 103 meq/L (98-107); Potassium 3.7 meq/L (3.5-5.1); Sodium 136 meq/L (136-145)
[2018-04-08 07:04] LABS: Anion Gap 10 meq/L (5-15); Blood Urea Nitrogen 5 mg/dL (7-18); Calcium 8.4 mg/dL (8.5-10.1); Glucose,Random 90 mg/dL (74-106)
[2018-04-08 07:08] LABS: Glomerular Filtration Rate Greater Than 89 mL/min (>89)
[2018-04-08 07:17] LABS: Target Cells 1+
[2018-04-08 07:18] LABS: Acanthocytes Occ; Tear Drop Cells 1+
[2018-04-08] MEDS: Folic Acid 1 MG Tablet PO SCH (09:10)
[2018-04-08] MEDS: Ferrous Sulfate 325 MG Tablet PO SCH ×3 (09:10→22:02)
[2018-04-08] MEDS: Multivitamin/Minerals Therapeutic Tablet PO SCH (09:10)
--- NOTE | 2018-04-08 10:26 | P.PN ---
Subjective Interval history: 27-year-old female who is seen and examined today for follow-up on symptomatic anemia, urinary tract infection. Patient appears to be doing well. Denies any new complaints. Patient and her significant other or asking if she can go home. However patient still with T-max 101.5. Vital signs are stable. Physical Exam Vital signs: Vital Signs 04/07/18 10:27 04/07/18 16:00 04/07/18 20:00 Temperature 96.4 F L 101.5 F H Pulse Rate 79 90 72 Respiratory Rate 18 16 20 Blood Pressure 109/68 117/76 109/69 Pulse Oximetry 95 98 100 04/08/18 00:00 04/08/18 04:00 04/08/18 08:00 Temperature 97.7 F 100.8 F H 98.0 F Pulse Rate 59 L 79 Respiratory Rate 20 18 Blood Pressure 103/68 103/61 Pulse Oximetry 100 96 Intake & Output 04/07/18 04/08/18 04/08/18 18:59 06:59 18:59 Intake Total 480 / 480 940 / 940 Balance 480 / 480 940 / 940 Weight 62.4 kg Intake: IV 460 / 460 Venofer Inj 200 MG In NS Inj 110 / 110 100 ML @ 110 mls/hr IV.SIG ONCE ONE Rx#:[id number] NS Inj 250 ML @ 15 mls/hr IV. 250 / 250 SIG ONCE ROSA Rx#:[id number] Rocephin Inj 1,000 MG In NS Inj 100 / 100 100 ML @ 200 mls/hr IV.SIG Q24H ROSA Rx#:[id number] Oral 480 / 480 480 / 480 Other: # Voids 4 2 # Bowel Movements 0 Narrative: GENERAL: Well-developed, well-nourished, in no acute distress. alert and orientated HEENT: Head is normocephalic without any lesions or masses noted. Facial features are symmetric. Eyes: Extraocular muscles are intact. Conjunctivae were clear. NECK: Supple without any masses. Trachea midline no deviation. No JVD, CARDIAC: Regular rhythm, regular rate. S1/S2 are heard. No murmurs gallops or rubs. LUNGS: Clear to auscultation bilaterally. No wheeze, rhonchi or rales. No use of accessory muscles on inspiration or expiration. ABDOMEN: Soft, nontender. Nondistended. Bowel sounds heard in all 4 quadrants. No organomegaly or masses. Negative rebound, negative guarding EXTREMITIES: No edema, pulses are equal bilaterally. No cyanosis or clubbing NEUROLOGY: Mood and affect appear appropriate. Cranial nerves II through XII grossly intact. Moving all extremities, speech is clear Results - Labs CBC & Chem 7: 04/08/18 05:20 04/08/18 05:20 Laboratory Results - last 24 hr 04/07/18 04/08/18 04/08/18 07:11 05:20 05:20 CBC w Diff Slide review pending WBC 8.1 RBC 5.12 Hgb 11.2 L Hct 36.8 MCV 71.9 L MCH 21.8 L MCHC 30.4 L RDW 23.2 H Plt Count 201 MPV 8.9 Neut % (Auto) 75.0 H Lymph % (Auto) 12.1 [place] % (Auto) 12.3 H Eos % (Auto) 0.1 Baso % (Auto) 0.5 Neut # (Auto) 6.1 Lymph # (Auto) 1.0 [place] # (Auto) 1.0 H Eos # (Auto) 0.0 Baso # (Auto) 0.0 WBC Differential . Diff Scan Auto diff confirmed Differential Comment . Target Cells 1+ H Tear Drop Cells 1+ H Acanthocytes (Spur) Occ H Sodium 136 Potassium 3.7 Chloride 103 Carbon Dioxide 23.0 Anion Gap 10 BUN 5 L Creatinine 0.65 Estimated GFR Greater than 89 POC Glucose Random Glucose 90 Calcium 8.4 L Ferritin 36 04/08/18 05:24 CBC w Diff WBC RBC Hgb Hct MCV MCH MCHC RDW Plt Count MPV Neut % (Auto) Lymph % (Auto) [place] % (Auto) Eos % (Auto) Baso % (Auto) Neut # (Auto) Lymph # (Auto) [place] # (Auto) Eos # (Auto) Baso # (Auto) WBC Differential Diff Scan Differential Comment Target Cells Tear Drop Cells Acanthocytes (Spur) Sodium Potassium Chloride Carbon Dioxide Anion Gap BUN Creatinine Estimated GFR POC Glucose 103 Random Glucose Calcium Ferritin Assessment and Plan - Plan Symptomatic anemia -Patient does have chronic iron deficient anemia and apparently is intolerant to p.o. iron. Patient is followed by physician in [place]. -Status post 2 unit packed red blood cell transfusion with significant improvement of her hemoglobin -Hematology consultation has been performed, they recommended iron replacement with IV iron, follow-up with her doctor in [place] Febrile illness -Unknown etiology could be secondary to urinary tract infection, transfusion -Continue to follow blood cultures -Continue to follow urine culture -Patient does not have any leukocytosis Urinary tract infection -Continue Rocephin -Continue to follow urine culture for appropriate antibiotics Alcohol abuse -Patient counseled on cessation -CIWA has been 0 -Discontinue Ativan -Monitor for withdrawals DVT prevention -Low risk, early ambulation Discharge Planning: Discharge planning within 24-48 hours, when patient is afebrile, awaiting urine culture for appropriate antibiotic
[2018-04-08 22:20] VITALS: RESP 20; O2SAT 100
--- NOTE | 2018-04-08 22:59 | P.PNONC ---
Subjective Interval history: Patient is feeling better. The left flank pain and suprapubic Pain has now completely resolved She wants to go home. Her boyfriend was present She does not have anymore fevers Her weakness has improved After blood transfusion and iron infusion Objective Vital Signs/Intake & Output: Vital Signs 04/08/18 00:00 04/08/18 04:00 04/08/18 08:00 Temperature 97.7 F 100.8 F H 98.0 F Pulse Rate 59 L 79 Respiratory Rate 20 18 Blood Pressure 103/68 103/61 Pulse Oximetry 100 96 04/08/18 11:53 04/08/18 15:11 04/08/18 20:00 Temperature 96.6 F L 99.0 F 97.7 F Pulse Rate 66 85 63 Respiratory Rate 18 18 20 Blood Pressure 96/55 L 92/56 L Pulse Oximetry 96 96 100 Intake & Output 04/08/18 04/08/18 04/09/18 06:59 18:59 06:59 Intake Total 940 / 940 Balance 940 / 940 Weight 62.4 kg 57.1 kg Intake: IV 460 / 460 Venofer Inj 200 MG In NS Inj 110 / 110 100 ML @ 110 mls/hr IV.SIG ONCE ONE Rx#:[id number] NS Inj 250 ML @ 15 mls/hr IV. 250 / 250 SIG ONCE ROSA Rx#:[id number] Rocephin Inj 1,000 MG In NS Inj 100 / 100 100 ML @ 200 mls/hr IV.SIG Q24H ROSA Rx#:[id number] Oral 480 / 480 Other: # Voids 2 2 Result Diagrams: 04/08/18 05:20 04/08/18 05:20 Laboratory Results: Laboratory Results - last 24 hr 04/07/18 04/08/18 04/08/18 00:57 05:20 05:20 CBC w Diff Slide review pending WBC 8.1 RBC 5.12 Hgb 11.2 L Hct 36.8 MCV 71.9 L MCH 21.8 L MCHC 30.4 L RDW 23.2 H Plt Count 201 MPV 8.9 Neut % (Auto) 75.0 H Lymph % (Auto) 12.1 Jennings % (Auto) 12.3 H Eos % (Auto) 0.1 Baso % (Auto) 0.5 Neut # (Auto) 6.1 Lymph # (Auto) 1.0 Jennings # (Auto) 1.0 H Eos # (Auto) 0.0 Baso # (Auto) 0.0 WBC Differential . Diff Scan Auto diff confirmed Differential Comment . Target Cells 1+ H Tear Drop Cells 1+ H Acanthocytes (Spur) Occ H Sodium 136 Potassium 3.7 Chloride 103 Carbon Dioxide 23.0 Anion Gap 10 BUN 5 L Creatinine 0.65 Estimated GFR Greater than 89 POC Glucose Random Glucose 90 Calcium 8.4 L Urine Color Barbara Urine Clarity Cloudy H Urine pH 5.0 Ur Specific [place] 1.010 Urine Protein 100 H Urine Glucose (UA) Negative Urine Ketones Negative Urine Occult Blood Small H Urine Nitrate Positive H Urine Bilirubin Negative Urine Urobilinogen 2.0 H Ur Leukocyte Esterase Moderate H Urine RBC 14 H Urine WBC Urine WBC Clumps Many H Urine Bacteria Occasional H Urine Mucus Many H Micro UA Comment Culture indicated Urine Culture Comments Culture indicated 04/08/18 05:24 CBC w Diff WBC RBC Hgb Hct MCV MCH MCHC RDW Plt Count MPV Neut % (Auto) Lymph % (Auto) Jennings % (Auto) Eos % (Auto) Baso % (Auto) Neut # (Auto) Lymph # (Auto) Jennings # (Auto) Eos # (Auto) Baso # (Auto) WBC Differential Diff Scan Differential Comment Target Cells Tear Drop Cells Acanthocytes (Spur) Sodium Potassium Chloride Carbon Dioxide Anion Gap BUN Creatinine Estimated GFR POC Glucose 103 Random Glucose Calcium Urine Color Urine Clarity Urine pH Ur Specific [place] Urine Protein Urine Glucose (UA) Urine Ketones Urine Occult Blood Urine Nitrate Urine Bilirubin Urine Urobilinogen Ur Leukocyte Esterase Urine RBC Urine WBC Urine WBC Clumps Urine Bacteria Urine Mucus Micro UA Comment Urine Culture Comments Culture Results: Microbiology 04/07/18 00:57 Urine Culture - Preliminary Clean Catch Urine gram negative rods 04/07/18 02:40 Aerobic Blood Culture - Preliminary Blood - Peripheral No growth in 1 day Anaerobic Blood Culture - Preliminary No growth in 1 day 04/07/18 02:35 Aerobic Blood Culture - Preliminary Blood - Peripheral No growth in 1 day Anaerobic Blood Culture - Preliminary No growth in 1 day Medications: Active Medications Generic Name Dose Route Start Last Admin Trade Name Freq PRN Reason Stop Dose Admin Acetaminophen 650 mg 04/07/18 02:30 04/08/18 05:27 Tylenol PO 650 mg Q4H PRN Administration pain, fever > 100.4 Ferrous Sulfate 325 mg 04/07/18 21:00 04/08/18 22:02 Ferosul PO Not Given BID ROSA Folic Acid 1 mg 04/07/18 09:00 04/08/18 09:10 Folic Acid PO 04/12/18 08:59 1 mg DAILY ROSA Administration Ceftriaxone Sodium 1,000 mg/ 100 mls @ 200 mls/hr 04/08/18 02:00 04/08/18 03: 49 Sodium Chloride IV.SIG Infused Q24H ROSA Infusion Multivitamins/Minerals 1 tab 04/07/18 09:00 04/08/18 09:10 Theragran-M PO 04/12/18 08:59 1 tab DAILY ROSA Administration Ondansetron HCl 4 mg 04/07/18 02:18 04/07/18 12:26 Zofran Inj IV.PUSH 4 mg Q6H PRN Administration NAUSEA OR VOMITING Thiamine HCl 100 mg 04/07/18 09:00 04/08/18 09:09 Vitamin B1 PO 100 mg DAILY ROSA Administration Objective Remarks: GENERAL: Well-nourished, well-developed patient. SKIN: Warm and dry. HEAD: Normocephalic. EYES: No scleral icterus. No injection or drainage. NECK: Supple, trachea midline. No JVD or lymphadenopathy. LYMPHATIC: No adenopathy. CARDIOVASCULAR: Regular rate and rhythm without murmurs. RESPIRATORY: Breath sounds equal bilaterally. No accessory muscle use. GASTROINTESTINAL: Abdomen soft, non-tender, nondistended. EXTREMITIES: No cyanosis, or edema. MUSCULOSKELETAL: Adequate muscle tone. NEUROLOGICAL: No obvious focal deficit. Awake, alert, and oriented x3. PSYCHIATRIC: Appropriate mood and affect; insight and judgment normal. Assessment/Plan (1) Symptomatic anemia Code(s): D64.9 - Anemia, unspecified Status: Acute - Plan Patient had Blood transfusion and iron infusion. She has tolerated it well Hemoglobin is almost normal When I asked her Again today Whether she had any G.I.Work up for the anemia in the past. She stated no. Yesterday she misunderstood my question. Most likely the cause of iron deficiency is multiple ( 4) C-sections An intolerance to oral iron. Urine culture= Gram-negative hammad's. Patient is on the antibiotic. This is managed by admitting team From hematological Standpoint Shecan be discharged She will follow up with her PCP in [place] No further input is needed I will sign off Available PRN Discuss with patient and Her boyfriend
[2018-04-09 02:27] VITALS: PULSE 51; TEMP 97.8
[2018-04-09 04:49] VITALS: BP 98/54
[2018-04-09] MEDS: Folic Acid 1 MG Tablet PO SCH (08:24)
[2018-04-09] MEDS: Multivitamin/Minerals Therapeutic Tablet PO SCH (08:24)
[2018-04-09] MEDS: Ferrous Sulfate 325 MG Tablet PO SCH (08:24)
--- NOTE | 2018-04-09 10:38 | P.DS ---
Date of admission: 04/07/18 01:35 Primary care physician: UNKNOWN Attending physician on discharge: Paul Ba Anticipated date of discharge: 04/09/18 Brief History from admission: 27-year-old female with a past medical history for anemia requiring transfusion x1 1 week ago presents to the emergency department for the evaluation of "an aching liver", fever and urinary symptoms times 2 days. The patient reports she was seen at [facility] last week where she was transfused 1 unit and given an iron infusion. She was prescribed iron supplements however refuses to take these as she states her iron has been low her whole life and nothing will bring it up. The patient is anemic today with a hemoglobin of 6.4. She also has a urinary tract infection. She denies chest pain or shortness of breath. No cough. Positive fevers times 2 days. Complains of pelvic pain. Denies nausea/ vomiting/diarrhea. Patient reports drinking 1-2 bottles of vodka daily. She reports she has never had withdrawal seizures. DS: Diagnosis - Discharge Diagnosis (1) Urinary tract infection Status: Acute (2) Symptomatic anemia Status: Acute DS: Medications - Discharge Medications Prescriptions: sulfamethoxazole-trimethoprim [Bactrim DS] 1 tab PO Q12H #14 tab DS: Summary Hospital Course: 27-year-old female with known history of chronic iron deficiency anemia who is intolerant to p.o. iron. Patient presented the hospital originally because of bilateral flank pain right greater than left. Patient was found to have urinary tract infection. Significant anemia. Patient does have rather significant anemia requiring transfusions on a routine basis. Patient does live in [place] and is followed by physicians there. Patient was over here visiting and came in for the flank pain but found to have severe anemia. Patient was admitted with transfusion of 2 units of packed red blood cells as well as iron infusion. The patient was febrile during her stay in the hospital. Possible underlying pyelonephritis. Awaiting for cultures to be completed. Urine culture did indicate E. coli which she was on Rocephin with continued improvement. Patient denies any flank pain at this time. Hemoglobin has remained stable. We will plan discharge accordingly. - Time Spent with Patient Total time spent providing and/or coordinating discharge services: Greater than 30 minutes - Quality: VTE Deep Vein Thrombosis/Pulmonary Embolism Present on Admission: No Exam Vital signs: Vital Signs 04/08/18 11:53 04/08/18 15:11 04/08/18 20:00 Temperature 96.6 F L 99.0 F 97.7 F Pulse Rate 66 85 63 Respiratory Rate 18 18 20 Blood Pressure 96/55 L 92/56 L Pulse Oximetry 96 96 100 04/09/18 00:00 04/09/18 04:00 Temperature 97.8 F Pulse Rate 51 L 51 L Respiratory Rate 20 Blood Pressure 93/68 L 98/54 L Pulse Oximetry 100 Intake & Output 04/08/18 04/09/18 04/09/18 18:59 06:59 18:59 Intake Total 580 / 580 Balance 580 / 580 Weight 57.1 kg Intake: IV 100 / 100 Rocephin Inj 1,000 MG In NS Inj 100 / 100 100 ML @ 200 mls/hr IV.SIG Q24H ROSA Rx#:[id number] Oral 480 / 480 Other: # Voids 2 3 Narrative: GENERAL: Well-developed, well-nourished, in no acute distress. alert and orientated HEENT: Head is normocephalic without any lesions or masses noted. Facial features are symmetric. Eyes: Extraocular muscles are intact. Conjunctivae were clear. NECK: Supple without any masses. Trachea midline no deviation. No JVD, CARDIAC: Regular rhythm, regular rate. S1/S2 are heard. No murmurs gallops or rubs. LUNGS: Clear to auscultation bilaterally. No wheeze, rhonchi or rales. No use of accessory muscles on inspiration or expiration. ABDOMEN: Soft, nontender. Nondistended. Bowel sounds heard in all 4 quadrants. No organomegaly or masses. Negative rebound, negative guarding EXTREMITIES: No edema, pulses are equal bilaterally. No cyanosis or clubbing NEUROLOGY: Mood and affect appear appropriate. Cranial nerves II through XII grossly intact. Moving all extremities, speech is clear Results Procedures completed during hospitalization: None Labs on day of discharge: Labs from last 24 hours 04/07/18 00:57 Urine Color Barbara Urine Clarity Cloudy H Urine pH 5.0 Ur Specific [place] 1.010 Urine Protein 100 H Urine Glucose (UA) Negative Urine Ketones Negative Urine Occult Blood Small H Urine Nitrate Positive H Urine Bilirubin Negative Urine Urobilinogen 2.0 H Ur Leukocyte Esterase Moderate H Urine RBC 14 H Urine WBC Urine WBC Clumps Many H Urine Bacteria Occasional H Urine Mucus Many H Micro UA Comment Culture indicated Urine Culture Comments Culture indicated Preliminary micro results at discharge 04/07/18 02:40 Aerobic Blood Culture - Preliminary Blood - Peripheral No growth in 1 day Anaerobic Blood Culture - Preliminary No growth in 1 day 04/07/18 02:35 Aerobic Blood Culture - Preliminary Blood - Peripheral No growth in 1 day Anaerobic Blood Culture - Preliminary No growth in 1 day - Impressions ITS Impressions Chest X-Ray 04/07/18 02:32 CONCLUSION: No acute cardiopulmonary abnormality is identified. Discharge Plan - Discharge Disposition Patient Disposition: Discharge Home - Discharge Condition Condition: Stable - Discharge Order Discharge Orders: Discharge Order (Routine); Ordered 04/09/18 Ordered By: Price Reyes - Discharge Details Anticipated Discharge Date: 04/09/18 - Physicians Team Primary Care Provider: UNKNOWN, Attending Provider: Paul Ba Other Providers: Mike Eaton MD
== END 2018-04-09 13:05 | disposition home or self-care (01) ==
LOC: NEPC 20:12 → NEDA 04-07 01:35 → NEDH 04-07 07:03 → PH3 04-07 12:01
PROVIDERS: ADMIT Hospitalist; ATTEND Hospitalist